=== PATIENT | male | born 2000 | race Caucasian/White ===

== ENCOUNTER 2023-05-26 17:51 | Emergency (ER) | payer SELFPAY ==
[2023-05-26 19:31] LABS: Bilirubin Neg (Negative); Blood, Urine Negative (Negative); Clarity Clear (Clear); Glucose, Urine (Dipstick) Normal (Negative); Ketone, Urine 5 mg/dL (Negative); Leukocyte Negative (Negative); Nitrite Negative (Negative); Protein, Urine (Dipstick) 15 mg/dl (Neg-Trace); Urobilinogen Normal mg/dL (Less than 2)
[2023-05-26 19:37] LABS: CAUTI Indications for Culture Pelvic or flank pain; RBC/HPF 0-3 HPF (0-3); WBC/HPF 0-3 HPF (0-3)
[2023-05-26 19:38] LABS: Bacteria/HPF 1+ HPF (None Seen); Squamous Epithelial None Seen HPF (0-3)
[2023-05-26 19:39] LABS: Urine Culture Reflex No No
[2023-05-26] MEDS ORDERED: cefTRIAXone (ROCEPHIN) 500 MG VIAL ONE (20:12)
== END 2023-05-26 20:25 | disposition home or self-care (01) ==
LOC: CSHERS 17:51
DX: N34.2 Other urethritis (principal); Z20.2 Contact with and (suspected) exposure to infections with a predominantly sexual mode of transmission
CPT/HCPCS: 76870; 81001; 93976; 96372; J0696